=== PATIENT | male | born 1965 | race Asian ===

== ENCOUNTER 2022-08-27 04:28 | Day surgery (SDC) | payer OTHER ==
[2022-08-26 12:58] VITALS: BMI 29.0
[2022-08-27 10:15] VITALS: TEMP 97.8
[2022-08-27 11:24] VITALS: BP 107/71; PULSE 67; RESP 18
== END 2022-08-27 11:24 | disposition home or self-care (01) ==
LOC: JASU-ENDO 04:28
PROVIDERS: ATTEND Internal Medicine Gastroenterology
PROC: 0DJD8ZZ Inspection of Lower Intestinal Tract, Via Natural or Artificial Opening Endoscopic (ICD-10-PCS; principal; 2022-08-27 10:15)
DX: Z12.11 Encounter for screening for malignant neoplasm of colon (principal); K64.8 Other hemorrhoids; I10 Essential (primary) hypertension